=== PATIENT | female | born 1965 | race Caucasian/White ===

== ENCOUNTER 2021-08-05 07:30 | Day surgery (SDC) | payer SELFPAY ==
[2021-07-30 18:50] VITALS: BMI 24.7
[2021-08-05] MEDS ORDERED: PROPOFOL 20 ML ONE ×7 (09:02→12:09)
[2021-08-05] MEDS ORDERED: MIDAZOLAM HCL 2 MG/2 ML SINGLE DOSE VIAL ONE ×2 (09:03)
[2021-08-05] MEDS ORDERED: GLYCOPYRROLATE 0.2 MG/1 ML VIAL ONE (09:03)
[2021-08-05] MEDS ORDERED: ERYTHROMYCIN 0.5% OPHTHALMIC OINTMENT 3.5 GM TUBE ONE (09:26)
[2021-08-05] MEDS ORDERED: TETRACAINE 0.5% OPHTH SOLN 2 ML BOTTLE ONE (09:26)
[2021-08-05] MEDS ORDERED: POVIDONE-IODINE 5% OPHTHALMIC PREP 30 ML SOLUTION ONE (09:27)
[2021-08-05] MEDS ORDERED: LIDOCAINE 1%/EPI 1:100000 (20 ML MULTI DOSE VIAL) ONE (09:27)
[2021-08-05] MEDS ORDERED: GENTAMICIN SO4 80 MG/2 ML VIAL ONE (09:36)
[2021-08-05] MEDS ORDERED: CLINDAMYCIN PHOSPHATE 600 MG/4 ML VIAL ONE (09:53)
[2021-08-05] MEDS ORDERED: DEXAMETHASONE SOD PHOSPHATE 4 MG/1 ML VIAL ONE (10:10)
[2021-08-05] MEDS ORDERED: ONDANSETRON 4 MG/2 ML VIAL ONE ×3 (10:10→12:55)
[2021-08-05] MEDS ORDERED: THROMBIN (BOVINE) 5,000 UNIT VIAL TP ONE (11:25)
[2021-08-05] MEDS ORDERED: ONDANSETRON 4 MG/2 ML VIAL IVPUSH PRN (13:07)
[2021-08-05] MEDS ORDERED: oxyCODONE HCL 5 MG TABLET PO PRN (13:07)
[2021-08-05] MEDS ORDERED: LACTATED RINGERS SOLUTION 1,000 ML IV SCH (13:15)
[2021-08-05] MEDS ORDERED: ACETAMINOPHEN INJECTION 100 ML IVPB ONE (13:39)
[2021-08-05] MEDS ORDERED: ACETAMINOPHEN 1000 MG/100 ML VIAL (NON FORMULARY) IVPB ONE ×2 (13:40→16:20)
[2021-08-05] MEDS ORDERED: oxyCODONE HCL 5 MG TABLET ONE (14:09)
[2021-08-05 14:25] VITALS: TEMP 98.2
[2021-08-05 15:03] VITALS: BP 130/84; PULSE 79
== END 2021-08-05 15:15 | disposition home or self-care (01) ==
LOC: FASU 07:30
PROVIDERS: ATTEND Ophthalmology
PROC: 080N0ZZ Alteration of Right Upper Eyelid, Open Approach (ICD-10-PCS; 2021-08-05)
PROC: 080P0ZZ Alteration of Left Upper Eyelid, Open Approach (ICD-10-PCS; 2021-08-05)
PROC: 080Q0ZZ Alteration of Right Lower Eyelid, Open Approach (ICD-10-PCS; 2021-08-05)
PROC: 080R0ZZ Alteration of Left Lower Eyelid, Open Approach (ICD-10-PCS; principal; 2021-08-05 09:59)
DX: H02.835 Dermatochalasis of left lower eyelid (principal); H02.834 Dermatochalasis of left upper eyelid; H02.831 Dermatochalasis of right upper eyelid; H02.832 Dermatochalasis of right lower eyelid
CPT/HCPCS: 94760; J0131